=== PATIENT | male | born 1985 | race Two or more races ===

== ENCOUNTER 2022-02-13 10:42 | Emergency (ER) | payer OTHER ==
[~2022-02-13] VITALS: Ht 177.8 cm; Wt 100.2 kg
[2022-02-13] MEDS ORDERED: COZAAR100 MG PO (11:12)
[2022-02-13] MEDS ORDERED: NORVASC2.5 M1 PO (11:13)
== END 2022-02-13 15:23 | disposition home or self-care (01) ==
LOC: ER 10:42
DX: R51.9 Headache, unspecified (principal); Z20.828 Contact with and (suspected) exposure to other viral communicable diseases